=== PATIENT | female | born 1990 | race Caucasian/White ===

== ENCOUNTER 2017-10-09 17:12 | Emergency (ER) | payer OTHER ==
[~2017-10-09] VITALS: Ht 167.6 cm; Wt 115.0 kg
[2017-10-09 21:32] LABS: APPEARANCE,URINE CLEAR (CLEAR); BILIRUBIN,URINE NEGATIVE (NEGATIVE); GLUCOSE, URINE (UA) NEGATIVE (NEGATIVE); KETONES,URINE NEGATIVE (NEGATIVE); LEUKOCYTE ESTERASE ,URINE NEGATIVE (NEGATIVE); NITRATE,URINE NEGATIVE (NEGATIVE); OCCULT BLOOD,URINE NEGATIVE (NEGATIVE); PROTEIN,URINE NEGATIVE (NEGATIVE); UROBILINOGEN,URINE 0.2 mg/dL (<=1.0)
[2017-10-09] MEDS ORDERED: AZITHROMYCIN 250 MG TABLET PO ONE (22:00)
[2017-10-09 22:24] VITALS: BP 119/78
== END 2017-10-09 22:29 | disposition home or self-care (01) ==
LOC: EMS 17:13
DX: O98.811 Other maternal infectious and parasitic diseases complicating pregnancy, first trimester (principal); A74.9 Chlamydial infection, unspecified; Z3A.09 9 weeks gestation of pregnancy
CPT/HCPCS: 76801; 76817; 99285

== ENCOUNTER 2019-05-19 23:45 | Emergency (ER) | payer OTHER ==
[~2019-05-19] VITALS: Ht 167.6 cm; Wt 109.1 kg
[2019-05-20] MEDS ORDERED: IBUPROFEN 800 MG TABLET PO ONE (01:15)
[2019-05-20 03:05] VITALS: BP 119/68
== END 2019-05-20 03:31 | disposition home or self-care (01) ==
LOC: EMS 23:45
DX: M53.3 Sacrococcygeal disorders, not elsewhere classified (principal)
CPT/HCPCS: 72220